=== PATIENT | female | born 1995 | race Caucasian/White ===

== ENCOUNTER 2017-12-20 05:31 | Emergency (ER) | payer OTHER ==
[2017-12-20] MEDS: IBUPROFEN 800 MG TAB PO (06:30)
[2017-12-20] MEDS: METHOCARBAMOL 500 MG TAB PO (06:30)
== END 2017-12-20 08:35 | disposition home or self-care (01) ==
LOC: M ED 05:31
DX: S16.1XXA Strain of muscle, fascia and tendon at neck level, initial encounter (principal); X50.9XXA Other and unspecified overexertion or strenuous movements or postures, initial encounter; Y92.018 Other place in single-family (private) house as the place of occurrence of the external cause; F17.210 Nicotine dependence, cigarettes, uncomplicated
CPT/HCPCS: 70450

== ENCOUNTER → 2022-06-04 | Outpatient (CLI) | payer OTHER ==
[~2022-06-04] MED LIST: IBUP80TA PO; ROBA500T PO
[2022-06-04 13:57] LABS: HEMATOCRIT 36.7 % (36.0-47.0); HEMOGLOBIN 12.2 g/dl (12.0-15.5); MEAN CORPUSCULAR HEMOGLOBIN 27.9 pg (27.0-33.0); MEAN CORPUSCULAR HGB CONC 33.2 g/dl (32.0-36.5); MEAN CORPUSCULAR VOLUME 83.8 fl (80.0-96.0); PLATELET COUNT, AUTOMATED 254 10^3/uL (150-450); RED BLOOD COUNT 4.38 10^6/uL (4.00-5.40); WHITE BLOOD COUNT 8.4 10^3/uL (4.0-10.0)
[2022-06-04 15:36] LABS: GC DNA AMPLIFICATION NEGATIVE (NEGATIVE)
[2022-06-04 16:46] LABS: HEPATITIS C VIRUS ABY INDEX < 0.0 INDEX (<0.8); HIV 1&2 SCREEN CENTAUR NEGATIVE (NEGATIVE)
== END ==
LOC: M PLALAB 10:33
PROVIDERS: ATTEND Advanced Practice Midwife
DX: Z34.01 Encounter for supervision of normal first pregnancy, first trimester (principal)

== ENCOUNTER → 2022-08-05 | Outpatient (CLI) | payer OTHER | LOC: M WHC 11:33 | PROVIDERS: ATTEND Specialist | DX: Z34.02 Encounter for supervision of normal first pregnancy, second trimester (principal) ==

== ENCOUNTER → 2022-09-03 | Outpatient (CLI) | payer OTHER | LOC: M WHC 08:11 | PROVIDERS: ATTEND Obstetrics & Gynecology | DX: Z36.2 Encounter for other antenatal screening follow-up (principal) ==

== ENCOUNTER → 2022-09-05 | Outpatient (CLI) | payer OTHER ==
[2022-09-05 16:36] LABS: HEMATOCRIT 32.7 % (36.0-47.0); HEMOGLOBIN 10.4 g/dl (12.0-15.5); MEAN CORPUSCULAR HEMOGLOBIN 27.2 pg (27.0-33.0); MEAN CORPUSCULAR HGB CONC 31.8 g/dl (32.0-36.5); MEAN CORPUSCULAR VOLUME 85.6 fl (80.0-96.0); PLATELET COUNT, AUTOMATED 234 10^3/uL (150-450); RED BLOOD COUNT 3.82 10^6/uL (4.00-5.40); WHITE BLOOD COUNT 9.9 10^3/uL (4.0-10.0)
== END ==
LOC: M PLALAB 11:46
PROVIDERS: ATTEND Advanced Practice Midwife
DX: Z34.02 Encounter for supervision of normal first pregnancy, second trimester (principal)

== ENCOUNTER → 2022-10-01 | Outpatient (CLI) | payer OTHER ==
[2022-10-01 13:42] LABS: HEMATOCRIT 32.6 % (36.0-47.0); HEMOGLOBIN 10.5 g/dl (12.0-15.5); MEAN CORPUSCULAR HEMOGLOBIN 26.9 pg (27.0-33.0); MEAN CORPUSCULAR HGB CONC 32.2 g/dl (32.0-36.5); MEAN CORPUSCULAR VOLUME 83.6 fl (80.0-96.0); PLATELET COUNT, AUTOMATED 254 10^3/uL (150-450); WHITE BLOOD COUNT 10.3 10^3/uL (4.0-10.0)
[2022-10-01 14:08] LABS: TOTAL PROTEIN,RANDOM URINE 18.9 MG/DL (0.0-14.0)
[2022-10-01 14:12] LABS: CREATININE,RANDOM URINE 167.8 MG/DL; URIC ACID 2.5 MG/DL (3.1-7.8)
[2022-10-01 14:14] LABS: LDH LACTATE DEHYDROGENASE 168 U/L (120-246)
[2022-10-01 14:15] LABS: ALT/SGPT 11 U/L (7.0-40); AST/SGOT 13 U/L (<34); BILIRUBIN,TOTAL 0.2 MG/DL (0.3-1.2); CREATININE FOR GFR 0.52 MG/DL (0.55-1.30); GLOMERULAR FILTRATION RATE > 60.0 (>60)
== END ==
LOC: M PLALAB 11:26
PROVIDERS: ATTEND Advanced Practice Midwife
DX: O13.9 Gestational [pregnancy-induced] hypertension without significant proteinuria, unspecified trimester (principal)

== ENCOUNTER → 2022-11-01 | Outpatient (CLI) | payer OTHER | LOC: M WHC 08:40 | PROVIDERS: ATTEND Obstetrics & Gynecology | DX: O13.9 Gestational [pregnancy-induced] hypertension without significant proteinuria, unspecified trimester (principal); Z3A.34 34 weeks gestation of pregnancy ==

== ENCOUNTER → 2022-11-13 | Outpatient (REF) | payer OTHER | LOC: M PLALAB 13:30 | PROVIDERS: ATTEND Obstetrics & Gynecology | DX: O13.3 Gestational [pregnancy-induced] hypertension without significant proteinuria, third trimester (principal) ==

== ENCOUNTER 2022-12-05 11:26 | Inpatient (IN) | payer OTHER ==
[~2022-12-05] VITALS: Ht 160 cm; Wt 84.8 kg
[2022-12-05] VITALS (9 sets, daily range): BP systolic 124–142; BP diastolic 62–90
[2022-12-05] MEDS ORDERED: FERR325T3 PO (11:44)
[2022-12-05] MEDS ORDERED: PRENTAB9 PO (11:44)
[2022-12-05] MEDS ORDERED: HOME MED LIST COMPLETE! XX SCH (11:45)
[2022-12-05 12:37] LABS: HEMATOCRIT 32.6 % (36.0-47.0); HEMOGLOBIN 10.7 g/dl (12.0-15.5); MEAN CORPUSCULAR HEMOGLOBIN 26.1 pg (27.0-33.0); MEAN CORPUSCULAR HGB CONC 32.8 g/dl (32.0-36.5); MEAN CORPUSCULAR VOLUME 79.5 fl (80.0-96.0); PLATELET COUNT, AUTOMATED 240 10^3/uL (150-450); WHITE BLOOD COUNT 13.3 10^3/uL (4.0-10.0)
[2022-12-05] MEDS ORDERED: CARBOPROST TROMETHAMINE 250 MCG/ML AMP IM PRN (12:50)
[2022-12-05] MEDS ORDERED: METHYLERGONOVINE MALEATE 0.2MG/ML 1ML VIAL IM PRN (12:50)
[2022-12-05] MEDS ORDERED: LACTATED RINGER'S 1000 ML IV PRN (12:50)
[2022-12-05] MEDS ORDERED: TRANEXAMIC ACID INJection 1,000 MG in NS 100 ML IV PRN (12:50)
[2022-12-05] MEDS ORDERED: OXYTOCIN DRIP 30 UNITS in IV 1 EA IV PRN ×4 (12:50)
[2022-12-05] MEDS: miSOPROStol 50MCG 1/2 TABLET XX SCH ×3 (13:11→20:50)
[2022-12-05 13:47] LABS: ALBUMIN 2.7 G/DL (3.2-5.2); ALKALINE PHOSPHATASE 188 U/L (46-116); ALT/SGPT < 9 U/L (7.0-40); AST/SGOT 17 U/L (<34); BILIRUBIN,TOTAL 0.3 MG/DL (0.3-1.2); BLOOD UREA NITROGEN 12 MG/DL (9-23); CALCIUM LEVEL 9.1 MG/DL (8.5-10.1); CARBON DIOXIDE LEVEL 18 MMOL/L (20-31); CHLORIDE LEVEL 107 MMOL/L (98-107); CREATININE FOR GFR 0.56 MG/DL (0.55-1.30); GLOMERULAR FILTRATION RATE > 60.0 (>60); GLUCOSE, FASTING 101 MG/DL (60-100); POTASSIUM SERUM 4.3 MMOL/L (3.5-5.1); SODIUM LEVEL 138 MMOL/L (136-145); TOTAL PROTEIN 6.1 G/DL (5.7-8.2)
[2022-12-05 14:01] LABS: TOTAL PROTEIN,RANDOM URINE 31.6 MG/DL (0.0-14.0)
[2022-12-05 14:06] LABS: CREATININE,RANDOM URINE 237.9 MG/DL
[2022-12-06] VITALS (27 sets, daily range): BP systolic 115–141; BP diastolic 55–93
[2022-12-06] MEDS: miSOPROStol 50MCG 1/2 TABLET XX SCH ×3 (01:19→10:20)
[2022-12-06] MEDS ORDERED: OXYTOCIN DRIP 30 UNITS in IV 1 EA IV SCH (16:05)
[2022-12-06] MEDS: LR 1,000 ML IV SCH ×2 (16:26→21:53)
[2022-12-06] MEDS ORDERED: ONDANSETRON 4MG 2ML VIAL IV ONE (16:30)
[2022-12-06] MEDS ORDERED: MORPHINE 10 MG/ML 1ML VIAL IV ONE (16:30)
[2022-12-07] VITALS (54 sets, daily range): BP systolic 106–183; BP diastolic 55–108; TEMP 98.6; O2SAT 96–98
[2022-12-07] MEDS: LR 1,000 ML IV SCH ×2 (02:28→11:24)
[2022-12-07] MEDS ORDERED: ePHEDrine SULFATE 25 MG/5 ML(5MG/ML) SYRINGE IVP PRN (06:40)
[2022-12-07] MEDS ORDERED: ONDANSETRON 4MG 2ML VIAL IV PRN ×2 (06:40→14:45)
[2022-12-07] MEDS ORDERED: NALOXONE INJ 0.4MG/1ML VIAL IV PRN ×3 (06:40→14:45)
[2022-12-07] MEDS ORDERED: EPIDURAL/PCA KEYS XX PRN (06:40)
[2022-12-07] MEDS ORDERED: LR 500 ML IV PRN (06:40)
[2022-12-07] MEDS ORDERED: FENTANYL/ROPIVACAINE/NACL BAG 100 ML EPIDURAL SCH (06:40)
[2022-12-07] MEDS ORDERED: diphenhydrAMINE 50MG/ML VIAL IV PRN ×2 (06:40→14:45)
[2022-12-07] MEDS ORDERED: CALCIUM CARBONATE 500 MG CHEW U/D PO ONE (08:40)
[2022-12-07 12:32] LABS: HEMOGLOBIN 10.8 g/dl (12.0-15.5); MEAN CORPUSCULAR HEMOGLOBIN 26.1 pg (27.0-33.0); MEAN CORPUSCULAR HGB CONC 32.7 g/dl (32.0-36.5); MEAN CORPUSCULAR VOLUME 79.7 fl (80.0-96.0); PLATELET COUNT, AUTOMATED 179 10^3/uL (150-450); RED BLOOD COUNT 4.14 10^6/uL (4.00-5.40); WHITE BLOOD COUNT 10.1 10^3/uL (4.0-10.0)
[2022-12-07 13:01] LABS: ALBUMIN 2.3 G/DL (3.2-5.2); ALKALINE PHOSPHATASE 182 U/L (46-116); ALT/SGPT < 9 U/L (7.0-40); AST/SGOT 12 U/L (<34); BILIRUBIN,TOTAL 0.3 MG/DL (0.3-1.2); BLOOD UREA NITROGEN 6 MG/DL (9-23); CARBON DIOXIDE LEVEL 23 MMOL/L (20-31); CHLORIDE LEVEL 107 MMOL/L (98-107); CREATININE FOR GFR 0.61 MG/DL (0.55-1.30); GLOMERULAR FILTRATION RATE > 60.0 (>60); GLUCOSE, FASTING 62 MG/DL (60-100); POTASSIUM SERUM 3.9 MMOL/L (3.5-5.1); SODIUM LEVEL 138 MMOL/L (136-145); TOTAL PROTEIN 5.4 G/DL (5.7-8.2)
[2022-12-07] MEDS ORDERED: BICITRA 30ML SOLN UDC PO ONE (13:25)
[2022-12-07] MEDS ORDERED: ceFAZolin SOD 2 GM in IV 1 EA IV ONE (13:25)
[2022-12-07] MEDS ORDERED: AZITHROMYCIN INJ 500 MG, VIAL MATE ADAPTER 1 EACH in NS 250 ML IV ONE (13:25)
[2022-12-07] MEDS ORDERED: OXYTOCIN 30UNITS IN 0.9% NaCl 500ML IV BAG As Ordered ONE ×2 (13:39→14:54)
[2022-12-07] MEDS ORDERED: LIDOCAINE 2% W/EPINEPHRINE 20ML VIAL **PRES FREE As Ordered ONE (13:39)
[2022-12-07] MEDS ORDERED: ACETAMINOPHEN 1000MG 100ML IV BAG As Ordered ONE (13:46)
[2022-12-07] MEDS ORDERED: KETOROLAC 60MG 2ML VIAL As Ordered ONE (13:51)
[2022-12-07] MEDS ORDERED: ONDANSETRON 4MG 2ML VIAL As Ordered ONE (13:51)
[2022-12-07] MEDS ORDERED: MORPHINE PRES-FREE INJ 10 MG/10 ML VIAL As Ordered ONE (14:12)
[2022-12-07] MEDS ORDERED: ePHEDrine SULFATE 25 MG/5 ML(5MG/ML) SYRINGE As Ordered ONE (14:20)
[2022-12-07] MEDS ORDERED: PHENYLephrine 500MCG 5ML (100MCG/ML) SYRINGE As Ordered ONE (14:20)
[2022-12-07] MEDS: SLF 3 ML SYR IV SCH ×2 (14:45→22:45)
[2022-12-07] MEDS ORDERED: METOCLOPRAMIDE INJ 10MG/2ML VIAL IV PRN (14:45)
[2022-12-07] MEDS ORDERED: fentaNYL 100 MCG/2 ML INJECTION IV PRN (14:45)
[2022-12-07] MEDS ORDERED: oxyCODONE 5MG TAB PO PRN ×3 (14:45→15:00)
[2022-12-07] MEDS ORDERED: LR 1,000 ML IV SCH (14:45)
[2022-12-07] MEDS ORDERED: **NOTE PATIENT COMMENT** MISC XX SCH (14:45)
[2022-12-07] MEDS ORDERED: RHOGAM 300MCG (1500IU) INJ IM SCH (15:00)
[2022-12-07] MEDS ORDERED: SIMETHICONE 80MG CHEW TAB PO PRN (15:00)
[2022-12-07] MEDS ORDERED: DOCUSATE SODIUM 100MG CAPSULE PO PRN (15:00)
[2022-12-07] MEDS ORDERED: OXYTOCIN DRIP 30 UNITS in IV 1 EA IV SCH (15:00)
[2022-12-07] MEDS: ACETAMINOPHEN 500 MG TAB PO SCH ×2 (15:00→21:02)
[2022-12-07] MEDS: KETOROLAC 30 MG/ML 1ML VIAL IV SCH (21:02)
[2022-12-08] MEDS: ACETAMINOPHEN 500 MG TAB PO SCH ×4 (03:07→20:40)
[2022-12-08] MEDS: KETOROLAC 30 MG/ML 1ML VIAL IV SCH ×2 (03:07→08:28)
[2022-12-08] MEDS: LR 1,000 ML IV SCH ×4 (03:07→23:20)
[2022-12-08 06:00] VITALS: BP 120/68; O2SAT 98
[2022-12-08 06:57] LABS: MEAN CORPUSCULAR HEMOGLOBIN 26.2 pg (27.0-33.0); MEAN CORPUSCULAR HGB CONC 32.5 g/dl (32.0-36.5); MEAN CORPUSCULAR VOLUME 80.5 fl (80.0-96.0); PLATELET COUNT, AUTOMATED 157 10^3/uL (150-450); RED BLOOD COUNT 2.98 10^6/uL (4.00-5.40); WHITE BLOOD COUNT 8.4 10^3/uL (4.0-10.0)
[2022-12-08 07:00] LABS: HEMOGLOBIN 7.8 g/dl (12.0-15.5)
[2022-12-08] MEDS: SLF 3 ML SYR IV SCH (07:19)
[2022-12-08] MEDS: PRENATAL VITAMINS CHEWABLE TABLET PO SCH (08:28)
[2022-12-08] MEDS ORDERED: FERROUS SULFATE 325MG TAB PO SCH (09:00)
[2022-12-08] MEDS ORDERED: PRENATAL VITAMINS CHEWABLE TABLET PO SCH (09:00)
[2022-12-08 10:00] VITALS: BP 121/58; O2SAT 96
[2022-12-08 14:00] VITALS: BP 122/71; O2SAT 97
[2022-12-08] MEDS: IBUPROFEN 600MG TAB PO SCH ×2 (14:52→20:40)
[2022-12-08 17:56] VITALS: BP 130/81; O2SAT 99
[2022-12-08] MEDS: FERROUS SULFATE 325MG TAB PO SCH (20:40)
[2022-12-08 22:00] VITALS: BP 143/72; O2SAT 98
[2022-12-09 02:00] VITALS: BP 141/77
[2022-12-09] MEDS: IBUPROFEN 600MG TAB PO SCH ×2 (02:40→09:06)
[2022-12-09] MEDS: ACETAMINOPHEN 500 MG TAB PO SCH ×2 (02:40→09:06)
[2022-12-09 06:00] VITALS: BP 127/60
[2022-12-09] MEDS ORDERED: MEASLES,MUMPS,RUBELLA VACCINE INJ (MMR-II) SC.IMMUN ONE (09:00)
[2022-12-09] MEDS: FERROUS SULFATE 325MG TAB PO SCH (09:05)
[2022-12-09] MEDS: PRENATAL VITAMINS CHEWABLE TABLET PO SCH (09:05)
[2022-12-09 10:15] VITALS: BP 163/92; O2SAT 98
[2022-12-09 10:30] VITALS: BP 128/80
[2022-12-09] MEDS ORDERED: IBUP-1022 PO (11:30)
[2022-12-09] MEDS ORDERED: OXYC-517 PO (11:30)
== END 2022-12-09 13:00 | disposition home or self-care (01) | DRG 540 ==
LOC: M LDI 11:26 → M OBS 12-07 16:00
PROVIDERS: ADMIT Obstetrics & Gynecology; ATTEND Obstetrics & Gynecology
PROC: 3E0P7GC Introduction of Other Therapeutic Substance into Female Reproductive, Via Natural or Artificial Opening (ICD-10-PCS; 2022-12-05)
PROC: 10D00Z1 Extraction of Products of Conception, Low, Open Approach (ICD-10-PCS; principal; 2022-12-07)
PROC: 10907ZC Drainage of Amniotic Fluid, Therapeutic from Products of Conception, Via Natural or Artificial Opening (ICD-10-PCS; 2022-12-07)
DX: O13.4 Gestational [pregnancy-induced] hypertension without significant proteinuria, complicating childbirth (principal); O64.0XX0 Obstructed labor due to incomplete rotation of fetal head, not applicable or unspecified; O76 Abnormality in fetal heart rate and rhythm complicating labor and delivery; Z3A.38 38 weeks gestation of pregnancy; O69.81X0 Labor and delivery complicated by cord around neck, without compression, not applicable or unspecified; Z37.0 Single live birth

== ENCOUNTER → 2023-02-12 | Outpatient (CLI) | payer OTHER ==
[~2023-02-12] MED LIST changes: +FERR325T3 PO; +IBUP-1022 PO; +OXYC-517 PO; +PRENTAB9 PO
[2023-02-12 17:29] LABS: HIV 1&2 SCREEN NEGATIVE (NEGATIVE)
[2023-02-12 17:37] LABS: HEPATITIS C VIRUS ABY INDEX 0.15 INDEX (<0.8)
[2023-02-12 17:38] LABS: HEPATITIS B CORE ANTIBODY IGM NEGATIVE (NEGATIVE)
[2023-02-12 19:28] LABS: GC DNA AMPLIFICATION NEGATIVE (NEGATIVE)
== END ==
LOC: M PLALAB 14:25
PROVIDERS: ATTEND Nurse Practitioner Family
DX: Z11.3 Encounter for screening for infections with a predominantly sexual mode of transmission (principal); Z12.4 Encounter for screening for malignant neoplasm of cervix

== ENCOUNTER → 2023-03-24 | Outpatient (REF) | payer OTHER | LOC: M SFHCWAGY 09:01 | PROVIDERS: ATTEND Nurse Practitioner Family | DX: Z12.4 Encounter for screening for malignant neoplasm of cervix (principal); R87.615 Unsatisfactory cytologic smear of cervix | CPT/HCPCS: 87624; G0123 ==

== ENCOUNTER → 2024-03-29 | Outpatient (REF) | payer OTHER ==
[2024-03-31 15:52] LABS: HPV APTIMA Not Detected (Not Detected)
== END ==
LOC: M SFHCWAGY 17:54
PROVIDERS: ATTEND Nurse Practitioner Family
DX: Z12.4 Encounter for screening for malignant neoplasm of cervix (principal); R87.610 Atypical squamous cells of undetermined significance on cytologic smear of cervix (ASC-US)